=== PATIENT | male | born 1975 | race Caucasian/White ===

== ENCOUNTER 2018-01-26 00:31 | Emergency (ER) | payer MEDICAID, OTHER ==
[~2018-01-26] VITALS: Ht 177.8 cm; Wt 86.2 kg
[2018-01-26 00:42] VITALS: BP 139/86
[2018-01-26] MEDS ORDERED: IBUPROFEN 600 MG TAB PO ONE (04:30)
== END 2018-01-26 05:25 | disposition home or self-care (01) ==
LOC: ER 00:36
DX: S62.314A Displaced fracture of base of fourth metacarpal bone, right hand, initial encounter for closed fracture (principal); S00.83XA Contusion of other part of head, initial encounter; F12.10 Cannabis abuse, uncomplicated; F17.210 Nicotine dependence, cigarettes, uncomplicated; Y08.89XA Assault by other specified means, initial encounter; Y93.89 Activity, other specified; Y99.8 Other external cause status; Y92.89 Other specified places as the place of occurrence of the external cause
CPT/HCPCS: 29125; 70450; 73120